=== PATIENT | female | born 2000 | race Caucasian/White ===

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

== ENCOUNTER → 2018-01-11 | Outpatient (CLI) | payer OTHER ==
--- NOTE | 2018-01-11 15:57 | RADIOLOGY IMAGING REPORT ---
[place] [facility] [place]: Yesenia Yang : 2000 MR: [id number] V: [id number] EXAM DATE: ORDERING PHYSICIAN: [facility] TECHNOLOGIST: Location: [facility] - [place] Patient: Yesenia Yang : 2000 Visit/Account:[id number] Date of Sevice: 01/11/2018 EXAMINATION: Right upper quadrant ultrasound HISTORY: Right upper quadrant pain x2 months COMPARISON: Hepatobiliary scan December 21, 2017 FINDINGS: Gallbladder: Multiple small shadowing stones are seen within the gallbladder. Gallbladder wall does not appear thickened and there was a negative Salazar sign by technologist notation Liver: Negative. Common duct: Normal measuring 2.6 mm. Pancreas: Negative. Kidney: Right kidney appears unremarkable as imaged measuring 9.7 cm in length Upper abdominal aorta and IVC: Negative. Ascites: None. IMPRESSION: Cholelithiasis although no evidence of gallbladder wall thickening biliary ductal dilatation or posit storm Salazar sign Report Dictated By: Michelle Carter MD at 01/11/2018 3:49 PM Report E-Signed By: Michelle Carter MD at 01/11/2018 3:52 PM WSN:[email or web address]
== END ==
LOC: US 13:54
DX: K80.80 Other cholelithiasis without obstruction (principal); R10.11 Right upper quadrant pain; R11.2 Nausea with vomiting, unspecified
CPT/HCPCS: 76705